=== PATIENT | male | born 1975 | race Caucasian/White ===

== ENCOUNTER 2019-04-09 16:29 | Emergency (ER) | payer SELFPAY ==
[2019-04-09] MEDS ORDERED: Fentanyl 100 MCG/2 ML VIAL ONE ×2 (17:26→18:44)
--- NOTE | 2019-04-09 18:13 | ULT ---
Exam: Testicular ultrasound HISTORY: Right testicular pain, swelling and erythema COMPARISON: None TECHNIQUE: Sagittal and transverse imaging of the left and right hemiscrotum are performed. Testicula r Doppler is performed with grayscale, color-flow, Doppler imaging and spectral waveform analysis. FINDINGS: Right hemiscrotum: Testicle: Homogeneous echotexture. No intratesticular masses. Right testicle measurements: 4.9 x 4.0 x 4.0 Right epididymis: Normal echotexture. Right epididymis measurements: 0.9 x 1.2 x 3.1 cm Hydrocele: Small amount of fluid in the right hemiscrotum Left hemiscrotum: Left testicle: Homogeneous echotexture. No intratesticular masses. Left testicle measurements: 2.8 x 3.8 x 4.1 cm Left epididymis: Normal echotexture. Left epididymis measurements:0.9 x 1.2 x 1.5 cm Hydrocele: None Testicular Doppler: Increased vascular flow to the right testicle and right epididymis. IMPRESSION: 1. Right epididymoorchitis.
== END 2019-04-09 19:05 | disposition home or self-care (01) ==
LOC: ERS 16:29
DX: N45.2 Orchitis (principal); Z87.891 Personal history of nicotine dependence
CPT/HCPCS: 76870; 93976; 96374; J3010